=== PATIENT | male | born 1970 | race African-American/Black ===

== ENCOUNTER 2016-11-22 00:01 | Emergency (ER) | payer OTHER ==
[2016-11-22 00:48] VITALS: BP 200/125
== END 2016-11-22 00:48 | disposition home or self-care (01) ==
LOC: ED 00:01
DX: T82.838A Hemorrhage due to vascular prosthetic devices, implants and grafts, initial encounter (principal); I12.9 Hypertensive chronic kidney disease with stage 1 through stage 4 chronic kidney disease, or unspecified chronic kidney disease; N18.9 Chronic kidney disease, unspecified; Z99.2 Dependence on renal dialysis; Z79.899 Other long term (current) drug therapy; Y92.89 Other specified places as the place of occurrence of the external cause